=== PATIENT | male | born 1985 | race Two or more races ===

== ENCOUNTER 2024-01-25 11:24 | Emergency (ER) | payer OTHER ==
[~2024-01-25] VITALS: Ht 170.2 cm; Wt 85.3 kg
[2024-01-25 12:04] VITALS: TEMP 98.5
[2024-01-25 12:08] LABS: BASOPHILS % (AUTO) 0.8 % (0.0-2.0); EOSINOPHILS % (AUTO) 2.3 % (1.0-6.0); HEMATOCRIT 45.1 % (41-53); HEMOGLOBIN 14.7 g/dL (13.5-17.5); LYMPHOCYTES # (AUTO) 2.3 K/uL (1.0-4.8); LYMPHOCYTES % (AUTO) 34.5 % (22.0-44.0); MEAN CORPUSCULAR HEMOGLOBIN 25.5 pg (26.0-34.0); MEAN CORPUSCULAR HGB CONC 32.5 G/dL (31.0-37.0); MEAN CORPUSCULAR VOLUME 78 fL (80-100); MONOCYTES # (AUTO) 0.6 K/uL (0.1-1.0); MONOCYTES % (AUTO) 9.4 % (2.0-9.0); NEUTROPHILS # (AUTO) 3.5 K/uL (1.8-7.7); PLATELET COUNT (AUTO) 175 K/uL (150-450); RED BLOOD CELL COUNT(AUTO) 5.75 MIL/uL (4.50-5.90); RED CELL DISTRIBUTION WIDTH 16.9 % (11.5-14.5); WHITE BLOOD COUNT (AUTO) 6.7 K/uL (4.5-11.0)
[2024-01-25 12:13] LABS: ANION GAP 14 mmol/L (8-16); CALCIUM, TOTAL 8.7 mg/dL (8.8-10.5); CARBON DIOXIDE 25 mmol/L (22-29); CHLORIDE 109 mmol/L (98-107); CREATININE 1.11 mg/dL (0.60-1.30); GLOMERULAR FILTR. RATE CALC > 60 mL/min (>60); GLUCOSE,RANDOM 117 mg/dL (70-110); POTASSIUM 3.9 mmol/L (3.5-5.1); SODIUM SERUM 148 mmol/L (136-145); UREA NITROGEN, BLOOD 9 mg/dL (7-18)
[2024-01-25 12:19] LABS: ALANINE AMINOTRANSFERASE 60 U/L (12-78); ALBUMIN 3.6 g/dL (3.4-5.0); ALKALINE PHOSPHATASE 94 U/L (46-116); ASPARTATE AMINOTRANSFERASE 34 U/L (15-37); BILIRUBIN,TOTAL 0.2 mg/dL (0.1-1.0); TOTAL PROTEIN, SERUM 7.7 g/dL (6.4-8.2)
[2024-01-25 12:21] LABS: PROTHROMBIN TIME 10.2 SEC (9.4-11.6)
[2024-01-25 12:31] LABS: TROPONIN I-HIGH SENSITIVITY Less Than 4 ng/L (<76)
[2024-01-25] MEDS: ALTEPLASE PER STROKE PROTOCOL CLINICAL ONE (12:33)
[2024-01-25] MEDS: ALTEPLASE 7.7 MG in WATER FOR INJECTION,STERILE 7.7 ML IV ONE (12:34)
[2024-01-25] MEDS: ALTEPLASE IV ONE (12:35)
[2024-01-25] MEDS: WATER FOR INJECTION STERILE IV ONE (12:35)
[2024-01-25 13:00] VITALS: BP 132/85; PULSE 108; RESP 18
[2024-01-25] MEDS ORDERED: SODIUM CHLORIDE 0.9% 100 ML ONE (13:44)
[2024-01-25] MEDS ORDERED: IOHEXOL 350 MG/ML 100 ML VIAL ONE (13:44)
== END 2024-01-25 13:23 | disposition short-term general hospital (02) ==
LOC: EMS 11:25
DX: I66.01 Occlusion and stenosis of right middle cerebral artery (principal)
CPT/HCPCS: 99291; 70496; 37195; 71045; 80053; 82962; 84484; 85025; 85610; 85730; 36415; 70498; 93005; 70450; Q9967; J7050; J2997